=== PATIENT | female | born 1955 | race African-American/Black ===

== ENCOUNTER 2021-02-26 09:57 | Inpatient (IN) | payer MEDICARE, OTHER ==
[2021-02-26 11:23] LABS: #Eosinphils 0.2 10x3/uL (0.0-0.5); #Monocytes 0.6 10x3/uL (0.0-1.1); #Neutrophils 2.6 10x3/uL (1.5-8.4); %Basophils 0.4 % (0.0-2.0); %Eosinophils 4.5 % (0.0-6.0); %Lymphocytes 21.8 % (18.0-47.0); %Monocytes 13.9 % (0.0-10.0); Hemoglobin 8.2 g/dL (12.0-15.5); Mean Corpuscular HGB CONC 29.4 g/dL (32.0-36.0); Mean Corpuscular Hemoglobin 23.8 pg (27.0-33.0); Mean Corpuscular Volume 80.9 fl (81.6-98.3); Mean Platelet Volume 9.5 fl (7.4-10.4); Platelet Count 244 10x3/uL (150-450); RBC Distribution Width 20.2 % (11.5-14.5); Red Blood Cell (RBC) Count 3.45 10x6/uL (3.90-5.03); White Blood Cell (WBC) Count 4.5 10x3/uL (3.5-10.5)
[2021-02-26 11:27] LABS: ALT (SGPT) 14 U/L (8-55); AST (SGOT) 18 U/L (5-34); Albumin 3.3 g/dL (3.4-4.8); Alkaline Phosphatase 47 U/L (40-110); BUN (Urea Nitrogen) 12 mg/dL (9.8-20.1); Bilirubin, Total 0.5 mg/dL (0.2-1.2); Calc. Creatinine Clearance 0 mL/min (70-130); Calcium 9.2 mg/dL (7.8-10.44); Globulin 4.3 g/dL (2.4-3.5); Glucose 84 mg/dL (80-115); Lipase 16 U/L (8-78); Protein, Total 7.6 g/dL (5.8-8.1)
[2021-02-26 11:34] LABS: Anion Gap 18 mmol/L (10-20); Carbon Dioxide 35 mmol/L (23-31); Chloride 93 mmol/L (98-107); Potassium 3.5 mmol/L (3.5-5.1); Sodium 142 mmol/L (136-145)
[2021-02-26 11:37] LABS: Bilirubin Neg (Negative); Blood, Urine Negative (Negative); Clarity Slightly Cloudy (Clear); Glucose, Urine (Dipstick) Normal (Negative); Ketone, Urine 5 mg/dL (Negative); Leukocyte 25 (Negative); Nitrite Negative (Negative); Protein, Urine (Dipstick) 30 mg/dl (Neg-Trace)
[2021-02-26 11:46] LABS: Bacteria/HPF None Seen HPF (None Seen); RBC/HPF 0-3 HPF (0-3); WBC/HPF None Seen HPF (0-3)
[2021-02-26] MEDS ORDERED: cefTRIAXone\\ROCEPHIN 1 GM VIAL ONE (11:48)
[2021-02-26 12:13] LABS: Hypochromia SLIGHT = 6-15 cells (100X) (0-5/hpf); Ovalocytes SLIGHT = 2-5 cells (100X) (0-1/hpf)
[2021-02-26 12:14] LABS: Platelet Morphology Comment Appears Adequate
[2021-02-26] MEDS ORDERED: hydrALAZINE 25 MG TAB PO SCH (17:00)
[2021-02-26 18:44] VITALS: BMI 56.2
[2021-02-26] MEDS: Potassium Chloride 10 MEQ, Admixture Fee 1 EACH in Dextrose 5 % And 0.9 % NaCl 1,000 ML IVPB SCH (19:45)
[2021-02-26] MEDS: hydrALAZINE 25 MG TAB PO SCH (21:23)
[2021-02-26] MEDS: Famotidine 20 MG TAB PO SCH (21:24)
[2021-02-26] MEDS: Metoprolol Tartrate 50 MG TAB PO SCH (21:24)
[2021-02-27] MEDS: Ibuprofen 400 MG TAB PO PRN ×2 (02:30→17:38)
[2021-02-27] MEDS: Potassium Chloride 10 MEQ, Admixture Fee 1 EACH in Dextrose 5 % And 0.9 % NaCl 1,000 ML IVPB SCH ×2 (06:01→17:52)
[2021-02-27] MEDS ORDERED: Ferrous Sulfate 325 MG TAB PO SCH (08:00)
[2021-02-27 08:09] LABS: #Eosinphils 0.2 10x3/uL (0.0-0.5); #Monocytes 0.6 10x3/uL (0.0-1.1); #Neutrophils 2.4 10x3/uL (1.5-8.4); %Basophils 0.5 % (0.0-2.0); %Eosinophils 4.3 % (0.0-6.0); %Lymphocytes 24.8 % (18.0-47.0); %Monocytes 14.2 % (0.0-10.0); Mean Corpuscular HGB CONC 28.1 g/dL (32.0-36.0); Mean Corpuscular Hemoglobin 23.4 pg (27.0-33.0); Mean Corpuscular Volume 83.3 fl (81.6-98.3); Mean Platelet Volume 9.5 fl (7.4-10.4); Platelet Count 221 10x3/uL (150-450); RBC Distribution Width 20.4 % (11.5-14.5); Red Blood Cell (RBC) Count 3.42 10x6/uL (3.90-5.03); White Blood Cell (WBC) Count 4.2 10x3/uL (3.5-10.5)
[2021-02-27 08:15] LABS: BUN (Urea Nitrogen) 13 mg/dL (9.8-20.1); Calc. Creatinine Clearance 156 mL/min (70-130); Calcium 8.8 mg/dL (7.8-10.44); Glucose 92 mg/dL (80-115)
[2021-02-27 08:22] LABS: Anion Gap 16 mmol/L (10-20); Carbon Dioxide 36 mmol/L (23-31); Chloride 96 mmol/L (98-107); Potassium 3.7 mmol/L (3.5-5.1); Sodium 144 mmol/L (136-145)
[2021-02-27] MEDS: Potassium Chloride 10 MEQ TAB PO SCH (09:33)
[2021-02-27] MEDS: Aspirin 81 mg Enteric Coated Tablet PO SCH (09:33)
[2021-02-27] MEDS: Famotidine 20 MG TAB PO SCH (09:33)
[2021-02-27] MEDS: Metoprolol Tartrate 50 MG TAB PO SCH ×2 (09:34→21:37)
[2021-02-27] MEDS: hydrALAZINE 25 MG TAB PO SCH ×3 (09:34→21:37)
[2021-02-27] MEDS: Furosemide 20 MG TAB PO SCH ×2 (09:34→17:40)
[2021-02-27] MEDS ORDERED: Meropenem 2 GM in Admixture Fee 1 EACH IVPB SCH (14:47)
[2021-02-27] MEDS ORDERED: MEROPENEM 1 GM/50 ML 1 GM in Premix Bag 1 BAG IVPB SCH ×3 (15:30→22:00)
[2021-02-28] MEDS ORDERED: metroNIDAZOLE 500 MG in Premix Bag 1 BAG IVPB SCH (00:45)
[2021-02-28] MEDS: Potassium Chloride 10 MEQ, Admixture Fee 1 EACH in Dextrose 5 % And 0.9 % NaCl 1,000 ML IVPB SCH ×2 (03:35→12:56)
[2021-02-28 07:41] LABS: #Eosinphils 0.3 10x3/uL (0.0-0.5); #Monocytes 0.6 10x3/uL (0.0-1.1); #Neutrophils 2.9 10x3/uL (1.5-8.4); %Basophils 0.6 % (0.0-2.0); %Eosinophils 5.2 % (0.0-6.0); %Lymphocytes 22.6 % (18.0-47.0); %Monocytes 12.2 % (0.0-10.0); Hemoglobin 7.9 g/dL (12.0-15.5); Mean Corpuscular Hemoglobin 23.6 pg (27.0-33.0); Mean Corpuscular Volume 84.2 fl (81.6-98.3); Mean Platelet Volume 9.4 fl (7.4-10.4); Platelet Count 231 10x3/uL (150-450); RBC Distribution Width 20.8 % (11.5-14.5); Red Blood Cell (RBC) Count 3.35 10x6/uL (3.90-5.03)
[2021-02-28 07:48] LABS: ALT (SGPT) 13 U/L (8-55); AST (SGOT) 19 U/L (5-34); Albumin 3.2 g/dL (3.4-4.8); Alkaline Phosphatase 49 U/L (40-110); BUN (Urea Nitrogen) 12 mg/dL (9.8-20.1); Bilirubin, Total 0.4 mg/dL (0.2-1.2); Calc. Creatinine Clearance 143 mL/min (70-130); Calcium 8.8 mg/dL (7.8-10.44); Globulin 3.7 g/dL (2.4-3.5); Glucose 96 mg/dL (80-115); Iron 25 ug/dL (50-170); Iron Binding Capacity, Total 259 mcg/dL (265-497); Magnesium 2.1 mg/dL (1.6-2.6); Protein, Total 6.9 g/dL (5.8-8.1)
[2021-02-28 07:55] LABS: Anion Gap 18 mmol/L (10-20); Carbon Dioxide 32 mmol/L (23-31); Chloride 99 mmol/L (98-107); Potassium 3.8 mmol/L (3.5-5.1); Sodium 145 mmol/L (136-145)
[2021-02-28] MEDS: Metoprolol Tartrate 50 MG TAB PO SCH ×2 (08:44→21:32)
[2021-02-28] MEDS: hydrALAZINE 25 MG TAB PO SCH ×3 (08:45→21:32)
[2021-02-28] MEDS: Aspirin 81 mg Enteric Coated Tablet PO SCH (08:45)
[2021-02-28] MEDS: Potassium Chloride 10 MEQ TAB PO SCH (08:45)
[2021-02-28] MEDS: Ibuprofen 400 MG TAB PO PRN (11:48)
[2021-02-28] MEDS ORDERED: Enoxaparin Sodium 40 MG/0.4 ML SYRINGE SC SCH (13:00)
[2021-02-28] MEDS ORDERED: Furosemide 40 MG/4 ML VIAL SLOW IVP SCH (17:00)
[2021-03-01] MEDS: Ibuprofen 400 MG TAB PO PRN ×2 (10:20→23:18)
[2021-03-01] MEDS: hydrALAZINE 25 MG TAB PO SCH ×3 (10:40→21:18)
[2021-03-01] MEDS: Metoprolol Tartrate 50 MG TAB PO SCH ×2 (10:42→21:18)
[2021-03-01] MEDS: Potassium Chloride 10 MEQ TAB PO SCH (10:42)
[2021-03-01] MEDS: Aspirin 81 mg Enteric Coated Tablet PO SCH (10:43)
[2021-03-01] MEDS: Furosemide 40 MG/4 ML VIAL SLOW IVP SCH (10:43)
[2021-03-01] MEDS: Enoxaparin Sodium 40 MG/0.4 ML SYRINGE SC SCH (10:44)
[2021-03-02 05:06] LABS: Anion Gap 12 mmol/L (10-20); BUN (Urea Nitrogen) 14 mg/dL (9.8-20.1); Calc. Creatinine Clearance 168 mL/min (70-130); Calcium 9.1 mg/dL (7.8-10.44); Carbon Dioxide 36 mmol/L (23-31); Chloride 100 mmol/L (98-107); Glucose 90 mg/dL (80-115); Potassium 3.8 mmol/L (3.5-5.1); Sodium 144 mmol/L (136-145)
[2021-03-02] MEDS: Potassium Chloride 10 MEQ TAB PO SCH (10:28)
[2021-03-02] MEDS: Enoxaparin Sodium 40 MG/0.4 ML SYRINGE SC SCH (10:29)
[2021-03-02] MEDS: Furosemide 40 MG/4 ML VIAL SLOW IVP SCH (10:29)
[2021-03-02] MEDS: Aspirin 81 mg Enteric Coated Tablet PO SCH (10:29)
[2021-03-02] MEDS: hydrALAZINE 25 MG TAB PO SCH ×3 (10:29→20:46)
[2021-03-02] MEDS: Metoprolol Tartrate 50 MG TAB PO SCH ×2 (10:29→20:46)
[2021-03-02] MEDS: Ibuprofen 400 MG TAB PO PRN (14:24)
[2021-03-02] MEDS ORDERED: GoLYTELY 4,000 ml Bottle PO SCH (15:00)
[2021-03-02] MEDS ORDERED: Lorazepam 2 MG/ML VIAL SLOW IVP SCH (15:30)
[2021-03-02] MEDS: Ondansetron ODT 4 MG TAB PO PRN (20:46)
[2021-03-03 05:29] LABS: Anion Gap 15 mmol/L (10-20); BUN (Urea Nitrogen) 13 mg/dL (9.8-20.1); Calc. Creatinine Clearance 169 mL/min (70-130); Calcium 9.4 mg/dL (7.8-10.44); Carbon Dioxide 35 mmol/L (23-31); Chloride 98 mmol/L (98-107); Glucose 90 mg/dL (80-115); Magnesium 2.1 mg/dL (1.6-2.6); Potassium 4.5 mmol/L (3.5-5.1); Sodium 143 mmol/L (136-145)
[2021-03-03] MEDS: hydrALAZINE 25 MG TAB PO SCH ×3 (09:35→21:28)
[2021-03-03] MEDS: Bromocriptine 2.5 MG TAB PO SCH (09:35)
[2021-03-03] MEDS: Metoprolol Tartrate 50 MG TAB PO SCH ×2 (09:36→21:30)
[2021-03-03] MEDS: Potassium Chloride 10 MEQ TAB PO SCH (09:36)
[2021-03-03] MEDS: Aspirin 81 mg Enteric Coated Tablet PO SCH (09:36)
[2021-03-03] MEDS: Enoxaparin Sodium 40 MG/0.4 ML SYRINGE SC SCH (12:54)
[2021-03-03] MEDS: Furosemide 40 MG/4 ML VIAL SLOW IVP SCH (12:54)
[2021-03-03 15:06] LABS: Actual Bicarbonate (HCO3a) 40.1 mEq/L (22-28); Base Excess (BEa) 9.8 mEq/L (-2.0 to +3.0); CO2 Tension 102.1 mmHg (35.0-45.0); Carboxyhemoglobin (COHb) 0.9 gm% (0.0-3.0); Hemoglobin (Hb) 9.4 g/dL (12.0-16.0); O2 Tension (PaO2), arterial 77.1 mmHg (> 80.0); Potassium - ABG Lab 4.2 mmol/L (3.70-5.30); Puncture Site LRA; pH, Arterial 7.21 (7.35-7.45)
[2021-03-03 15:11] LABS: ALV-art Gradient -5.085 mmHg (0-20)
[2021-03-03] MEDS: Ibuprofen 400 MG TAB PO PRN (20:58)
[2021-03-04 05:33] LABS: SARS-CoV-2 NAA Rapid Test Not Detected (NotDetected)
[2021-03-04] MEDS: Metoprolol Tartrate 50 MG TAB PO SCH ×2 (06:23→20:05)
[2021-03-04] MEDS ORDERED: PROPOFOL 20 ML ONE (08:15)
[2021-03-04] MEDS ORDERED: Ketamine 50 MG/ML (10ML VIAL) ONE (08:15)
[2021-03-04] MEDS: hydrALAZINE 25 MG TAB PO SCH ×3 (09:45→20:03)
[2021-03-04] MEDS: Enoxaparin Sodium 40 MG/0.4 ML SYRINGE SC SCH (09:45)
[2021-03-04] MEDS: Potassium Chloride 10 MEQ TAB PO SCH (12:50)
[2021-03-04] MEDS: Aspirin 81 mg Enteric Coated Tablet PO SCH (12:50)
[2021-03-04] MEDS: Bromocriptine 2.5 MG TAB PO SCH (12:50)
[2021-03-04] MEDS: Furosemide 40 MG/4 ML VIAL SLOW IVP SCH (13:40)
[2021-03-05] MEDS: Furosemide 40 MG/4 ML VIAL SLOW IVP SCH (08:55)
[2021-03-05] MEDS: hydrALAZINE 25 MG TAB PO SCH ×3 (08:55→20:11)
[2021-03-05] MEDS: Enoxaparin Sodium 40 MG/0.4 ML SYRINGE SC SCH (08:55)
[2021-03-05] MEDS: Potassium Chloride 10 MEQ TAB PO SCH (08:56)
[2021-03-05] MEDS: Metoprolol Tartrate 50 MG TAB PO SCH ×2 (08:56→20:11)
[2021-03-05] MEDS: Aspirin 81 mg Enteric Coated Tablet PO SCH (08:56)
[2021-03-05] MEDS: Bromocriptine 2.5 MG TAB PO SCH (08:56)
[2021-03-05] MEDS: Ondansetron ODT 4 MG TAB PO PRN (22:44)
[2021-03-06] MEDS: Enoxaparin Sodium 40 MG/0.4 ML SYRINGE SC SCH (09:14)
[2021-03-06] MEDS: hydrALAZINE 25 MG TAB PO SCH (09:15)
[2021-03-06] MEDS: Aspirin 81 mg Enteric Coated Tablet PO SCH (09:15)
[2021-03-06] MEDS: Potassium Chloride 10 MEQ TAB PO SCH (09:15)
[2021-03-06] MEDS: Metoprolol Tartrate 50 MG TAB PO SCH (09:15)
[2021-03-06] MEDS ORDERED: Furosemide 40 MG TAB PO SCH (10:15)
[2021-03-06 12:33] VITALS: BP 107/58; TEMP 98.9
[2021-03-06] MEDS: Furosemide 40 MG/4 ML VIAL SLOW IVP SCH (13:41)
[2021-03-07] MEDS ORDERED: Furosemide 40 MG TAB PO SCH (09:00)
== END 2021-03-06 15:25 | DRG 392 ==
LOC: CSHERS 09:57 → INTOOBSV 16:36 → CSHTELE 16:36 → OBSVTOIN 02-28 16:17
PROVIDERS: ADMIT Hospitalist; ATTEND Internal Medicine
PROC: 5A09357 Assistance with Respiratory Ventilation, Less than 24 Consecutive Hours, Continuous Positive Airway Pressure (ICD-10-PCS; 2021-03-03)
PROC: 0DJ08ZZ Inspection of Upper Intestinal Tract, Via Natural or Artificial Opening Endoscopic (ICD-10-PCS; principal; 2021-03-04)
PROC: 0DBN8ZX Excision of Sigmoid Colon, Via Natural or Artificial Opening Endoscopic, Diagnostic (ICD-10-PCS; 2021-03-04)
PROC: 0DBK8ZX Excision of Ascending Colon, Via Natural or Artificial Opening Endoscopic, Diagnostic (ICD-10-PCS; 2021-03-04)
PROC: 0DBM8ZX Excision of Descending Colon, Via Natural or Artificial Opening Endoscopic, Diagnostic (ICD-10-PCS; 2021-03-04)
DX: R10.12 Left upper quadrant pain (principal); K51.90 Ulcerative colitis, unspecified, without complications; I50.32 Chronic diastolic (congestive) heart failure; Z68.43 Body mass index [BMI] 50.0-59.9, adult; E66.2 Morbid (severe) obesity with alveolar hypoventilation; R10.31 Right lower quadrant pain; Z20.822 Contact with and (suspected) exposure to COVID-19; K52.9 Noninfective gastroenteritis and colitis, unspecified; D50.9 Iron deficiency anemia, unspecified; I11.0 Hypertensive heart disease with heart failure; Z86.718 Personal history of other venous thrombosis and embolism; Z86.711 Personal history of pulmonary embolism; Z90.49 Acquired absence of other specified parts of digestive tract; Z90.710 Acquired absence of both cervix and uterus; Z98.51 Tubal ligation status; Z88.3 Allergy status to other anti-infective agents; Z88.5 Allergy status to narcotic agent; Z88.8 Allergy status to other drugs, medicaments and biological substances; Z79.82 Long term (current) use of aspirin; Z79.899 Other long term (current) drug therapy; K57.30 Diverticulosis of large intestine without perforation or abscess without bleeding; Z71.3 Dietary counseling and surveillance; K63.5 Polyp of colon
CPT/HCPCS: 36415; 36416; 36600; 51701; 70553; 72194; 80048; 80053; 81003; 81015; 82728; 82805; 83540; 83550; 83605; 83690; 83735; 84146; 85025; 87040; 87086; 88305; 94640; 94660; 94760; 96365; 96372; 96375; 96376; G0378; J0696; J1650; J1940; J2060; J2185; J2704; J3480; J7042; J7620; Q0162; U0002

== ENCOUNTER 2021-10-22 12:51 | Emergency (ER) | payer MEDICARE, OTHER ==
[2021-10-22] MEDS ORDERED: Furosemide 40 MG/4 ML VIAL ONE (13:47)
[2021-10-22 13:57] LABS: #Eosinphils 0.2 10x3/uL (0.0-0.5); #Monocytes 0.7 10x3/uL (0.0-1.1); #Neutrophils 3.9 10x3/uL (1.5-8.4); %Basophils 0.6 % (0.0-2.0); %Eosinophils 2.7 % (0.0-6.0); %Lymphocytes 22.1 % (18.0-47.0); %Neutrophils 63.4 % (40.0-75.0); Hemoglobin 9.8 g/dL (12.0-15.5); Mean Corpuscular Hemoglobin 24.6 pg (27.0-33.0); Mean Corpuscular Volume 79.4 fl (81.6-98.3); Mean Platelet Volume 9.3 fl (7.4-10.4); Platelet Count 258 10x3/uL (150-450); RBC Distribution Width 18.4 % (11.5-14.5); Red Blood Cell (RBC) Count 3.98 10x6/uL (3.90-5.03); White Blood Cell (WBC) Count 6.2 10x3/uL (3.5-10.5)
[2021-10-22] MEDS ORDERED: cloNIDine 0.1 MG TAB ONE (14:09)
[2021-10-22] MEDS ORDERED: hydrALAZINE 20 MG/ML VIAL ONE (14:09)
[2021-10-22 14:11] LABS: ALT (SGPT) 17 U/L (8-55); AST (SGOT) 19 U/L (5-34); Albumin 3.8 g/dL (3.4-4.8); Alkaline Phosphatase 79 U/L (40-110); Anion Gap 15 mmol/L (10-20); BUN (Urea Nitrogen) 10 mg/dL (9.8-20.1); Bilirubin, Total 0.7 mg/dL (0.2-1.2); Calc. Creatinine Clearance 0 mL/min (70-130); Calcium 9.6 mg/dL (7.8-10.44); Carbon Dioxide 28 mmol/L (23-31); Chloride 101 mmol/L (98-107); Globulin 4.3 g/dL (2.4-3.5); Glucose 104 mg/dL (80-115); Potassium 3.9 mmol/L (3.5-5.1); Protein, Total 8.1 g/dL (5.8-8.1); Sodium 140 mmol/L (136-145)
== END 2021-10-22 16:47 | disposition home or self-care (01) ==
LOC: CSHERS 12:51
DX: I11.0 Hypertensive heart disease with heart failure (principal); I50.9 Heart failure, unspecified; R60.0 Localized edema; I49.3 Ventricular premature depolarization; I45.89 Other specified conduction disorders; Z86.718 Personal history of other venous thrombosis and embolism; Z86.711 Personal history of pulmonary embolism; Z79.82 Long term (current) use of aspirin; Z79.899 Other long term (current) drug therapy
CPT/HCPCS: 71045; 80053; 83880; 84484; 85025; 93005; 94760; 96374; 96375; J0360; J1940

== ENCOUNTER 2022-01-18 10:36 | Inpatient (IN) | payer MEDICARE, OTHER ==
[2022-01-18 11:31] LABS: #Eosinphils 0.2 10x3/uL (0.0-0.5); #Monocytes 0.6 10x3/uL (0.0-1.1); #Neutrophils 3.3 10x3/uL (1.5-8.4); %Basophils 0.5 % (0.0-2.0); %Eosinophils 2.9 % (0.0-6.0); %Lymphocytes 26.5 % (18.0-47.0); %Monocytes 10.2 % (0.0-10.0); %Neutrophils 59.7 % (40.0-75.0); Hemoglobin 10.9 g/dL (12.0-15.5); Mean Corpuscular HGB CONC 31.1 g/dL (32.0-36.0); Mean Corpuscular Hemoglobin 24.7 pg (27.0-33.0); Mean Corpuscular Volume 79.6 fl (81.6-98.3); Mean Platelet Volume 9.5 fl (7.4-10.4); Platelet Count 258 10x3/uL (150-450); RBC Distribution Width 18.5 % (11.5-14.5); Red Blood Cell (RBC) Count 4.41 10x6/uL (3.90-5.03); White Blood Cell (WBC) Count 5.5 10x3/uL (3.5-10.5)
[2022-01-18] MEDS ORDERED: Diltiazem 125 MG/25 ML ONE (11:32)
[2022-01-18 11:48] LABS: ALT (SGPT) 16 U/L (8-55); AST (SGOT) 21 U/L (5-34); Alkaline Phosphatase 84 U/L (40-110); Anion Gap 13 mmol/L (10-20); BUN (Urea Nitrogen) 12 mg/dL (9.8-20.1); Bilirubin, Total 0.6 mg/dL (0.2-1.2); Calc. Creatinine Clearance 0 mL/min (70-130); Calcium 9.9 mg/dL (7.8-10.44); Carbon Dioxide 28 mmol/L (23-31); Chloride 103 mmol/L (98-107); Estimated GFR 81; Glucose 115 mg/dL (80-115); Potassium 3.4 mmol/L (3.5-5.1); Sodium 141 mmol/L (136-145)
[2022-01-18] MEDS ORDERED: Metoprolol Tartrate 5 MG/5 ML VIAL ONE (12:41)
[2022-01-18 13:49] LABS: Magnesium 1.9 mg/dL (1.6-2.6)
[2022-01-18] MEDS ORDERED: Potassium Chloride 20 MEQ TAB PO SCH ×2 (14:00→21:00)
[2022-01-18 14:28] LABS: Troponin I 0.018 ng/mL (< 0.028)
[2022-01-18 16:28] VITALS: BMI 56.9
[2022-01-18] MEDS: Furosemide 20 MG TAB PO SCH (17:17)
[2022-01-18] MEDS ORDERED: Electrolyte Replacement Protocol 1 EACH FS SCH (20:00)
[2022-01-18 20:16] LABS: Troponin I 0.022 ng/mL (< 0.028)
[2022-01-18] MEDS: Diltiazem 125 MG in Sodium Chloride 0.9% 100 ML IVPB SCH (20:36)
[2022-01-18] MEDS ORDERED: Magnesium 2 GM/50 ML(in water) 2 GM in Premix Bag 1 BAG IVPB SCH (21:00)
[2022-01-18] MEDS: Mesalamine DR 400 mg Capsule PO SCH (21:21)
[2022-01-19] MEDS: Diltiazem 125 MG in Sodium Chloride 0.9% 100 ML IVPB SCH (04:56)
[2022-01-19 05:43] LABS: Anion Gap 15 mmol/L (10-20); BUN (Urea Nitrogen) 11 mg/dL (9.8-20.1); Calc. Creatinine Clearance 193 mL/min (70-130); Calcium 9.3 mg/dL (7.8-10.44); Carbon Dioxide 25 mmol/L (23-31); Chloride 107 mmol/L (98-107); Estimated GFR 83; Glucose 83 mg/dL (80-115); Magnesium 2.1 mg/dL (1.6-2.6); Potassium 4.1 mmol/L (3.5-5.1); Sodium 143 mmol/L (136-145)
[2022-01-19 05:50] LABS: #Eosinphils 0.2 10x3/uL (0.0-0.5); #Monocytes 0.6 10x3/uL (0.0-1.1); #Neutrophils 3.5 10x3/uL (1.5-8.4); %Basophils 0.5 % (0.0-2.0); %Eosinophils 3.7 % (0.0-6.0); %Lymphocytes 20.5 % (18.0-47.0); %Monocytes 11.2 % (0.0-10.0); %Neutrophils 63.9 % (40.0-75.0); Hemoglobin 9.1 g/dL (12.0-15.5); Mean Corpuscular HGB CONC 31.6 g/dL (32.0-36.0); Mean Corpuscular Hemoglobin 25.4 pg (27.0-33.0); Mean Corpuscular Volume 80.4 fl (81.6-98.3); Mean Platelet Volume 9.7 fl (7.4-10.4); Platelet Count 230 10x3/uL (150-450); RBC Distribution Width 18.4 % (11.5-14.5); Red Blood Cell (RBC) Count 3.58 10x6/uL (3.90-5.03); White Blood Cell (WBC) Count 5.5 10x3/uL (3.5-10.5)
[2022-01-19] MEDS: Furosemide 20 MG TAB PO SCH ×2 (08:21→15:00)
[2022-01-19] MEDS: Enoxaparin Sodium 40 MG/0.4 ML SYRINGE SC SCH (08:21)
[2022-01-19] MEDS: Mesalamine DR 400 mg Capsule PO SCH ×2 (08:21→20:49)
[2022-01-19] MEDS: Bromocriptine 2.5 MG TAB PO SCH (08:24)
[2022-01-19] MEDS: Metoprolol Tartrate 50 MG TAB PO SCH (20:47)
[2022-01-19] MEDS: Senokot S 8.6-50 MG TAB PO SCH (20:47)
[2022-01-19] MEDS: hydrALAZINE 20 MG/ML VIAL SLOW IVP PRN (20:54)
[2022-01-20] MEDS: Acetaminophen 325 MG TAB PO PRN ×2 (01:30→10:50)
[2022-01-20] MEDS: hydrALAZINE 20 MG/ML VIAL SLOW IVP PRN ×2 (05:28→11:42)
[2022-01-20 05:29] LABS: #Eosinphils 0.2 10x3/uL (0.0-0.5); #Monocytes 0.6 10x3/uL (0.0-1.1); #Neutrophils 4.1 10x3/uL (1.5-8.4); %Basophils 0.2 % (0.0-2.0); %Eosinophils 2.5 % (0.0-6.0); %Lymphocytes 18.9 % (18.0-47.0); %Monocytes 10.5 % (0.0-10.0); %Neutrophils 67.6 % (40.0-75.0); Hemoglobin 9.3 g/dL (12.0-15.5); Mean Corpuscular Hemoglobin 24.5 pg (27.0-33.0); Mean Corpuscular Volume 79.2 fl (81.6-98.3); Mean Platelet Volume 9.6 fl (7.4-10.4); Platelet Count 249 10x3/uL (150-450); Red Blood Cell (RBC) Count 3.79 10x6/uL (3.90-5.03)
[2022-01-20 05:44] LABS: Anion Gap 12 mmol/L (10-20); BUN (Urea Nitrogen) 11 mg/dL (9.8-20.1); Calc. Creatinine Clearance 196 mL/min (70-130); Calcium 9.2 mg/dL (7.8-10.44); Carbon Dioxide 30 mmol/L (23-31); Chloride 104 mmol/L (98-107); Estimated GFR 85; Glucose 89 mg/dL (80-115); Magnesium 1.9 mg/dL (1.6-2.6); Potassium 3.6 mmol/L (3.5-5.1); Sodium 142 mmol/L (136-145)
[2022-01-20] MEDS ORDERED: Magnesium 2 GM/50 ML(in water) 2 GM in Premix Bag 1 BAG IVPB SCH (06:00)
[2022-01-20] MEDS ORDERED: Potassium Chloride 20 MEQ TAB PO SCH (09:00)
[2022-01-20] MEDS ORDERED: Folic Acid 1 MG TAB PO SCH (09:00)
[2022-01-20] MEDS ORDERED: Aspirin 81 mg Enteric Coated Tablet PO SCH (09:00)
[2022-01-20] MEDS ORDERED: Multivit, Therapeutic 1 TAB PO SCH (09:00)
[2022-01-20] MEDS ORDERED: Cyanocobalamin (Vitamin B-12) 1,000 MCG TAB PO SCH (09:00)
[2022-01-20] MEDS: Ferrous Sulfate 325 MG TAB PO SCH ×2 (09:32→14:06)
[2022-01-20] MEDS: Enoxaparin Sodium 40 MG/0.4 ML SYRINGE SC SCH (09:32)
[2022-01-20] MEDS: Senokot S 8.6-50 MG TAB PO SCH (09:33)
[2022-01-20] MEDS: Bromocriptine 2.5 MG TAB PO SCH (09:33)
[2022-01-20] MEDS: Metoprolol Tartrate 50 MG TAB PO SCH (09:33)
[2022-01-20] MEDS: Mesalamine DR 400 mg Capsule PO SCH (09:34)
[2022-01-20] MEDS: Furosemide 20 MG TAB PO SCH ×2 (09:35→14:06)
[2022-01-20 11:37] VITALS: BP 176/82; TEMP 97.4
== END 2022-01-20 15:21 | disposition home or self-care (01) | DRG 308 ==
LOC: SUATTDRO 10:36 → CSHERS 10:36 → CSHTELE 15:15
PROVIDERS: ADMIT Internal Medicine; ATTEND Internal Medicine
DX: I48.0 Paroxysmal atrial fibrillation (principal); I50.33 Acute on chronic diastolic (congestive) heart failure; Z68.43 Body mass index [BMI] 50.0-59.9, adult; I13.0 Hypertensive heart and chronic kidney disease with heart failure and stage 1 through stage 4 chronic kidney disease, or unspecified chronic kidney disease; D35.2 Benign neoplasm of pituitary gland; E87.6 Hypokalemia; E66.01 Morbid (severe) obesity due to excess calories; K29.70 Gastritis, unspecified, without bleeding; G47.33 Obstructive sleep apnea (adult) (pediatric); E83.42 Hypomagnesemia; D50.9 Iron deficiency anemia, unspecified; N18.2 Chronic kidney disease, stage 2 (mild); Z86.718 Personal history of other venous thrombosis and embolism; Z86.711 Personal history of pulmonary embolism; Z99.3 Dependence on wheelchair; Z79.899 Other long term (current) drug therapy; Z90.710 Acquired absence of both cervix and uterus; Z90.79 Acquired absence of other genital organ(s); Z90.49 Acquired absence of other specified parts of digestive tract; Z91.14 Patient's other noncompliance with medication regimen; Z87.19 Personal history of other diseases of the digestive system; Z79.82 Long term (current) use of aspirin; Z88.8 Allergy status to other drugs, medicaments and biological substances; Z88.1 Allergy status to other antibiotic agents; Z88.5 Allergy status to narcotic agent; Z88.6 Allergy status to analgesic agent; Z20.822 Contact with and (suspected) exposure to COVID-19
CPT/HCPCS: 36415; 71045; 80048; 80053; 83735; 83880; 84443; 84484; 85025; 93005; 93010; 93306; 94760; 96365; 96366; 96375; 96376; J0360; J1650; J3475; J3490; U0003; U0005